=== PATIENT | female | born 1985 | race Two or more races ===

== ENCOUNTER 2016-07-30 05:59 | Day surgery (SDC) | payer MEDICAID ==
[2016-07-28 12:49] LABS: ADD SCAN DIFF NO
[2016-07-28 13:04] LABS: BASOPHIL # 0.1 10^3/ul (0.0-0.1); BASOPHILS % 0.6 % (0.0-2.0); EOSINOPHILS # 0.1 10^3/ul (0.0-0.5); EOSINOPHILS % 0.8 % (0.0-7.0); HEMATOCRIT 41.5 % (37.0-47.0); HEMOGLOBIN 14.1 g/dl (12.0-16.0); LYMPHOCYTES % 33.1 % (15.0-51.0); MEAN CORPUSCULAR HEMOGLOBIN 29.6 pg (29.0-33.0); MEAN PLATELET VOLUME 11.1 fl (7.4-10.4); MONOCYTE # 0.5 10^3/ul (0.3-0.9); MONOCYTES % 5.7 % (0.0-11.0); NEUTROPHIL # 5.4 10^3/ul (1.6-7.5); NEUTROPHILS % 59.5 % (39.0-77.0); PLATELET COUNT 298 10^3/UL (140-415); RED BLOOD COUNT 4.77 10^6/ul (4.20-5.40); RED CELL DISTRIBUTION WIDTH 12.2 % (11.5-14.5); WHITE BLOOD COUNT 9.1 10^3/ul (4.8-10.8)
[2016-07-28 13:10] LABS: ADD UMIC NO; URINE BILIRUBIN (Dip) NEGATIVE (NEGATIVE); URINE BLOOD (Dip) NEGATIVE (NEGATIVE); URINE COLOR LT. YELLOW (YELLOW); URINE GLUCOSE (Dip) NEGATIVE (NEGATIVE); URINE KETONES (Dip) NEGATIVE (NEGATIVE); URINE LEUKOCYTE ESTERASE (Dip) NEGATIVE (NEGATIVE); URINE NITRITE (Dip) NEGATIVE (NEGATIVE); URINE TOTAL PROTEIN (Dip) NEGATIVE (NEGATIVE); URINE UROBILINOGEN (Dip) 0.2 E.U./dL (0.1-1.0)
[2016-07-28 13:18] LABS: ALBUMIN 4.2 g/dl (3.3-4.9)
[2016-07-28 13:19] LABS: INR 0.91; POTASSIUM 3.7 mmol/L (3.5-5.1); PROTIME 12.3 Sec (12.2-14.2)
[2016-07-28 13:20] LABS: PARTIAL THROMBOPLASTIN TIME 27.5 Sec (25.0-35.0)
[2016-07-28 13:21] LABS: ALBUMIN/GLOBULIN RATIO 1.31; BILIRUBIN,INDIRECT 0.3 mg/dl (0-1.1); BILIRUBIN,TOTAL 0.3 mg/dl (0.2-1.3); TOTAL PROTEIN 7.4 g/dl (6.1-8.1)
[2016-07-28 13:29] LABS: CALCIUM 9.4 mg/dl (8.4-10.2); CREATININE 0.65 mg/dl (0.44-1.00)
[2016-07-29 08:25] VITALS: BMI 31.7
--- NOTE | 2016-07-29 21:25 | PREOPHP ---
DATE OF ADMISSION: 07/30/2016 REASON FOR ADMISSION: She is to be admitted tomorrow 07/30/2016 for laparoscopic tubal ligation. HISTORY OF PRESENT ILLNESS: This is a 30-year-old female, 3, para 3, who has requested ster ilization on the basis of multiparity. The alternatives to this method, the benefits, the risks and possible complications as well as 1% failure rate of the procedure were discussed at great length a t the office. She was allowed to ask questions. All her questions were answered to her satisfactio n, and she signed the appropriate surgical informed consents. PAST MEDICAL HISTORY: Entirely negative. The patient denies any cardiovascular disease, hypertensi on, diabetes, renal disease, liver disease, thyroid disease or neurological problems. ALLERGIES: SHE HAS NO KNOWN ALLERGIES. MEDICATIONS: She takes no medications on a regular basis. FAMILY HISTORY: Noncontributory. REVIEW OF SYSTEMS: A 12-point review of systems is noncontributory. PHYSICAL EXAMINATION: GENERAL: Well developed and nourished. No distress. Alert and oriented x3. A height of 5 feet 5 inches and a weight of 188 pounds. BMI is 31. VITAL SIGNS: Temperature 98, the blood pressure 109/79, pulse is 72 and regular, respirations 16 pe r minute. HEENT: Within normal limits. She wears permanent glasses. Pupils are PERRLA. NECK: Supple. The thyroid is nonpalpable. There is no lymphadenopathy. BREASTS: No masses or lumps. LUNGS: Clear to percussion and auscultation. HEART: Normal sinus rhythm without a murmur. ABDOMEN: Soft without organomegalies or hernias. PELVIC: Normal external genitalia. Cervix is normal without lesions. Bimanual exam: The uterus s mall, firm, in the midline. There are no adnexal masses. EXTREMITIES: Within normal limits. NEUROLOGIC: Also normal. IMPRESSION: Multiparity. The patient desires sterilization. PLAN: She is to be admitted on 07/30/2016 for laparoscopic bilateral tubal ligation, possible lapar otomy as necessary. Dictated By: LANNY CONWAY/MCKENZIE Conf#: [id number] DID#: [id number]
[2016-07-30] VITALS (14 sets, daily range): BP systolic 99–120; BP diastolic 55–76; PULSE 60–86; RESP 10–25; Ht 165.1 cm; Wt 86.2 kg
[~2016-07-30] VITALS: Ht 165.1 cm; Wt 86.2 kg
[2016-07-30] MEDS ORDERED: NEOSTIGMINE 3 MG/3 ML SYRINGE ONE (07:00)
[2016-07-30] MEDS ORDERED: BUPIVACAINE 0.5%/EPI (SDV) 30 ML INJ ONE (07:53)
[2016-07-30] MEDS ORDERED: PROPOFOL 20 ML ONE (07:58)
[2016-07-30] MEDS ORDERED: MIDAZOLAM 1 MG/ML 2 ML INJ ONE (07:58)
[2016-07-30] MEDS ORDERED: GLYCOPYRROLATE 0.4 MG INJ ONE (07:58)
[2016-07-30] MEDS ORDERED: ROCURONIUM 50 MG INJ ONE (07:58)
[2016-07-30] MEDS ORDERED: ROPIVACAINE 0.5 % 30 ML VIAL ONE (07:59)
[2016-07-30] MEDS ORDERED: METOCLOPRAMIDE 10 MG INJ ONE (07:59)
[2016-07-30] MEDS ORDERED: DEXAMETHASONE 4 MG/ML 1 ML INJ ONE (07:59)
[2016-07-30] MEDS ORDERED: CEFAZOLIN 1 GM INJ ONE (07:59)
[2016-07-30] MEDS ORDERED: LIDOCAINE 2% JELLY 5 ML ONE (08:03)
[2016-07-30] MEDS ORDERED: PHENYLephrine (100 MCG/ML) 5ML SYG ONE (08:27)
[2016-07-30] MEDS ORDERED: KETOROLAC 30 MG INJ ONE (08:54)
[2016-07-30] MEDS ORDERED: FENTAnyl 50 MCG/ML VIAL ONE (08:56)
[2016-07-30] MEDS ORDERED: ONDANSETRON 4 MG INJ IV PRN ×2 (09:00→09:30)
[2016-07-30] MEDS ORDERED: METOCLOPRAMIDE 10 MG INJ IV PRN (09:00)
[2016-07-30] MEDS ORDERED: MEPERIDINE 25 MG INJ IV PRN (09:00)
[2016-07-30] MEDS ORDERED: OXYCODONE/ACETAMINOPHEN (5/325) TAB PO PRN ×4 (09:00→09:30)
[2016-07-30] MEDS ORDERED: DIPHENHYDRAMINE 50 MG INJ IV PRN (09:00)
[2016-07-30] MEDS ORDERED: HYDROmorphONE (0.2 MG/ML) 10ML SYG IV PRN ×3 (09:00)
[2016-07-30] MEDS ORDERED: LACTATED RINGER'S 1,000 ML IV SCH (09:09)
--- NOTE | 2016-07-30 09:13 | PD.PPDC ---
[employer] Discharge Instruction Diagnosis Final Diagnosis: Multiparity Condition Patient Condition: Good Diet Diet: Resume Regular Diet Activity/Restrictions Activity: Normal Activity May Shower Restrictions: No Lifting No Sexual Activity Nothing in the Vagina No [place] Wound/Drain Care Instructions Wound/Drain Care Instructions: Keep clean and dry Follow-up Follow-up with Physician: 1, Week/Weeks Return to clinic for PIZZA DELIVERY Instructions: Fever greater than 101 Worsening abdominal pain Unable to tolerate diet Surgical Instructions: Incisional Drainage Incisional Redness (Shower and change Band aids daily) LANNY KEITA MD July 30, 2016 09:13
[2016-07-30] MEDS ORDERED: morphine 2 MG INJ IV PRN (09:30)
[2016-07-30] MEDS ORDERED: IBUPROFEN 600 MG TAB PO PRN (09:30)
[2016-07-30] MEDS ORDERED: ACETAMINOPHEN 325 MG TAB PO PRN (09:30)
--- NOTE | 2016-07-30 09:31 | OPR ---
DATE OF OPERATION: 07/30/2016 PREOPERATIVE DIAGNOSIS: Multiparity. POSTOPERATIVE DIAGNOSIS: Multiparity. OPERATION PERFORMED: Laparoscopic bilateral tubal ligation. SURGEON: Lanny Segal MD ANESTHESIA: General. ANESTHESIOLOGIST: Corine Mckoy MD ESTIMATED BLOOD LOSS: Negligible. SPECIMEN: There were no specimens. COMPLICATIONS: None. PROCEDURE AND FINDINGS: With the patient under general anesthesia by Dr. Mckoy, she was laid o n the table in the dorsal lithotomy position. Her abdomen and upper thighs were prepped with Chlora Prep and her perineum and vagina with Betadine and after 3 minutes, she was draped in the usual ster ile fashion for this procedure. The bladder was catheterized and emptied. A small 5 mm incision was done at the level of the umbilicus. While we were tenting up the anterior abdominal wall, the Veress needle was inserted. Once the tip of the needle was ascertained to be i ntraperitoneal by the hanging drop saline technique, it was then connected to the CO2 insufflator. Good pneumoperitoneum was obtained. The needle was removed and a 5 mm trocar was passed in. Throug h this trocar now, a 5 mm laparoscope with Endocamera was placed in the abdomen. There were a few o mental adhesions to the anterior abdominal wall. A second port was placed under direct vision in th e hypogastric area. Then the gyrus device at 35 abdi of current was utilized. The adhesions were lysed without any problems. The right tube was then reached, held in its mid portion and burned thr ough and through for 1.5 cm with the gyrus. The same was done on the contralateral side. There wer e no complications or bleeding. Pictures were taken for documentation. The incisions were infiltrated with 0.5% Marcaine with epinephrine, a total of 20 mL. They were ivory sed with 3-0 Monocryl. Band-Aids were applied and the patient was taken to recovery room with all v ital signs stable. EBL was negligible. Needle, sponge and instrument count at the end of the proce dure was correct twice. Dictated By: LANNY CONWAY/NTS Conf#: [id number] DID#: [id number]
[2016-07-30] MEDS ORDERED: ONDANSETRON 4 MG INJ IV STA (10:47)
== END 2016-07-30 13:30 | disposition home or self-care (01) ==
LOC: SDS 05:59
PROVIDERS: ATTEND Specialist
DX: Z30.2 Encounter for sterilization (principal)
CPT/HCPCS: 58670; 80053; 81003; 84703; 85025; 85610; 85730; 86850; 86900; 86901; J0690; J1100; J1170; J1885; J2250; J2370; J2405; J2710; J2765; J2795; J3010; Z7512; Z7610